=== PATIENT | female | born 1970 | race Caucasian/White ===

== ENCOUNTER 2018-08-17 09:26 | Emergency (ER) | payer OTHER ==
[2018-08-17 09:41] VITALS: RESP 18; TEMP 97.8
[2018-08-17] MEDS ORDERED: ASPIRIN 81 MG PO STA (10:05)
[2018-08-17] MEDS ORDERED: diphenhydrAMINE 50 MG/ML 1 ML VIAL IVP STA (10:05)
[2018-08-17] MEDS ORDERED: SODIUM CHLORIDE 0.9% 1,000 ML IV STA ×2 (10:05)
[2018-08-17] MEDS ORDERED: METOCLOPRAMIDE 5 MG/ML 2 ML VIAL IVP STA (10:05)
[2018-08-17] MEDS ORDERED: NITROGLYCERIN SL TABS 0.4 MG TAB SUBLINGUAL STA (10:05)
--- NOTE | 2018-08-17 10:16 | ED ---
Chest Pain HPI - General Chief Complaint: Chest Pain Stated Complaint: Chest pain/lt arm pain Time Seen by Provider: 08/17/18 09:50 Source: patient, RN notes reviewed, old records reviewed Mode of arrival: ambulatory Limitations: no limitations - History of Present Illness Initial Comments: Patient is a 48-year-old female presents emergency department today with chief complaint of left-sided chest pain radiating towards her jaw and occasionally down her arm. It's been progressive over the past 3 days especially at work. Worse on exertion. Patient has a significant cardiac history including pacemaker defibrillator placement in 2015 and february in [place]. She's also had cardiac cath and stent in 2013 when she had a stent in her LAD. Patient travels regularly for work. She was recently in [place] and had a cardiac cath in April of this year in [place]. She reports that it was relatively clear and not to the point where needing further stenting at that time. Patient reports that she did try to take her nitro but believes it was and was not helping. Patient at this time is a diabetic and a smoker. She is poorly controlled and does not take her insulin regularly. She has no primary care physician. She's been getting her prescriptions filled at different emergency departments and states that she's been traveling in. Patient reports that she is nauseated. - Related Data Home Medications Medication Instructions Recorded Confirmed Atorvastatin [Lipitor] 80 mg PO HS 08/17/18 08/17/18 Gabapentin [Neurontin] 800 mg PO TID 08/17/18 08/17/18 INSULIN LISPRO (humaLOG) [humaLOG] See Protocol SQ DIRECTED 08/17/18 08/17/18 Insulin Glargine [Lantus] 25 units SQ DAILY 08/17/18 08/17/18 Isosorbide Mononitrate ER [Imdur] 30 mg PO DAILY 08/17/18 08/17/18 Levothyroxine Sodium [Synthroid] 125 mcg PO DAILY 08/17/18 08/17/18 Metoprolol Tartrate [Lopressor] 50 mg PO BID 08/17/18 08/17/18 Naproxen [Naprosyn] 375 mg PO Q8HR 08/17/18 08/17/18 Allergies Allergy/AdvReac Type Severity Reaction Status Date / Time azithromycin Allergy Diarrhea Verified 08/17/18 11:37 Cephalosporins Allergy Rash/Hives Verified 08/17/18 11:37 cranberry Allergy Unknown Verified 08/17/18 11:37 ketorolac [From Toradol] Allergy Rash/Hives Verified 08/17/18 11:37 levofloxacin [From Levaquin] Allergy Anaphylaxis Verified 08/17/18 11:37 morphine Allergy Anaphylaxis Verified 08/17/18 11:37 ondansetron [From Zofran] Allergy Rash/Hives Verified 08/17/18 11:37 Review of Systems ROS Statement: Those systems with pertinent positive or pertinent negative responses have been documented in the HPI. ROS Other: All systems not noted in ROS Statement are negative. EKG Findings - EKG Comments: EKG Findings:: EKG performed at 1014 shows atrial paced rhythm with prolonged conduction. Abnormal EKG noted. Ventricular rate 80 bpm. ME interval is 214 ms. QRS duration 66. QT QTc is 382/440 ms. No evidence of ST elevation or T- wave inversion at this time. Past Medical History Past Medical History: Coronary Artery Disease (CAD), Chest Pain / Angina, Heart Failure, Diabetes Mellitus, Hypertension, Thyroid Disorder History of Any Multi-Drug Resistant Organisms: None Reported Past Surgical History: Cholecystectomy, Heart Catheterization With Stent, Hernia Repair, Hysterectomy, Orthopedic Surgery, Pacemaker Additional Past Surgical History / Comment(s): L leg, bladder stimulater in L hip Past Psychological History: No Psychological Hx Reported Smoking Status: Current every day smoker Past Alcohol Use History: Rare Past Drug Use History: None Reported General Exam - General Exam Comments Initial Comments: 48 rolled female. Alert and oriented 3. Patient appears no acute distress. Limitations: no limitations General appearance: alert, in no apparent distress Head exam: Present: atraumatic, normocephalic, normal inspection Eye exam: Present: normal appearance, PERRL, EOMI. Absent: scleral icterus, conjunctival injection, periorbital swelling ENT exam: Present: normal exam, mucous membranes moist Neck exam: Present: normal inspection. Absent: tenderness, meningismus, lymphadenopathy Respiratory exam: Present: normal lung sounds bilaterally. Absent: respiratory distress, wheezes, rales, rhonchi, stridor Cardiovascular Exam: Present: regular rate, normal rhythm, normal heart sounds. Absent: systolic murmur, diastolic murmur, rubs, gallop, clicks GI/Abdominal exam: Present: soft, normal bowel sounds. Absent: distended, tenderness, guarding, rebound, rigid Extremities exam: Present: normal inspection, full ROM, normal capillary refill. Absent: tenderness, pedal edema, joint swelling, calf tenderness Back exam: Present: normal inspection Neurological exam: Present: alert, oriented X3, CN II-XII intact Course Vital Signs 08/17/18 08/17/18 08/17/18 09:36 12:26 12:27 Temperature 97.8 F Pulse Rate 80 80 Pulse Rate [ 81 Technology Lead ] Respiratory 18 18 Rate Blood Pressure 138/72 131/79 O2 Sat by Pulse 97 96 Oximetry Chest Pain MDM - MDM This Patient is a 48-year-old female who presents emergency Department chief complaint of chest pain. Rating down the left arm and jaw for the past 3 days. She does report it was worse on exertion. Patient's EKG showed atrial place rhythm. No acute changes. He did have an a prolonged emergency room stay due to difficult IV establishment. We did eventually obtain blood work. Her troponin and d-dimer and cardiac enzymes and BNP were normal. Her chest x-ray did show some mild cardiomegaly. She is a smoker and diabetic poorly controlled. Plus this extensive cardiac history. I did discuss that I would like to admit the Patient for further evaluation, heparin and cardiology consult. Patient then refused and stated she would prefer to go home and take care of her dog. I did discuss that her symptoms could worsen and could be life -threatening. She does agree to leave AMA. Patient will be advised to follow- up with primary care physician. All questions answered return primary's were discussed. Disposition Clinical Impression: Chest pain Disposition: Left Against Medical Advice Condition: Stable Is patient prescribed a controlled substance at d/c from ED?: No Referrals: None,Stated [Primary Care Provider] - 1-2 days Time of Disposition: 13:34
[2018-08-17 12:29] LABS: Basophils % (A) 1 %; Eosinophils # (A) 0.1 k/uL (0-0.7); Eosinophils % (A) 2 %; HCT 37.8 % (34.0-46.0); HGB 12.2 gm/dL (11.4-16.0); Lymphocytes # (A) 1.4 k/uL (1.0-4.8); Lymphocytes % (A) 29 %; MCH 29.7 pg (25.0-35.0); MCHC 32.3 g/dL (31.0-37.0); Mean Platelet Volume 6.7; Monocytes # (A) 0.2 k/uL (0-1.0); Monocytes % (A) 4 %; Neutrophils # (A) 3.1 k/uL (1.3-7.7); Neutrophils % (A) 64 %; Platelet Count 243 k/uL (150-450); RBC 4.11 m/uL (3.80-5.40); WBC 4.8 k/uL (3.8-10.6)
[2018-08-17 12:30] VITALS: BP 131/79; PULSE 80
--- NOTE | 2018-08-17 12:36 | XR ---
EXAMINATION TYPE: XR chest 2V DATE OF EXAM: 08/17/2018 HISTORY: Chest Pain. REFERENCE: NONE. FINDINGS: There is a bipolar pacemaker in place on the left. Heart size is upper limits of normal. The lungs appear clear. Pleural spaces are clear. IMPRESSION: BORDERLINE CARDIOMEGALY.
[2018-08-17 12:39] LABS: ALT 24 U/L (9-52); AST 23 U/L (14-36); Albumin 3.6 g/dL (3.5-5.0); Alkaline Phosphatase 86 U/L (38-126); Anion Gap 6 mmol/L; Blood Urea Nitrogen 13 mg/dL (7-17); Calcium 9.2 mg/dL (8.4-10.2); Carbon Dioxide 22 mmol/L (22-30); Chloride 112 mmol/L (98-107); Glucose 93 mg/dL (74-99); Potassium 4.9 mmol/L (3.5-5.1); Sodium 140 mmol/L (137-145); Total Bilirubin 0.3 mg/dL (0.2-1.3); Total Protein 6.3 g/dL (6.3-8.2)
[2018-08-17 12:41] LABS: Creatine Kinase 112 U/L (30-135)
[2018-08-17 12:54] LABS: Creatine Kinase MB 1.8 ng/mL (0.0-2.4); Troponin I <0.012 ng/mL (0.000-0.034)
[2018-08-17 13:27] LABS: D-Dimer 0.3 mg/L FEU (<0.60); INR 0.9 (<1.2); Partial Thromboplastin Time 22.7 sec (22.0-30.0); Prothrombin Time 9.5 sec (9.0-12.0)
== END 2018-08-17 13:45 | disposition left against medical advice (07) ==
LOC: EC 09:26
DX: R07.9 Chest pain, unspecified (principal); R68.84 Jaw pain; M79.602 Pain in left arm; R11.0 Nausea; E11.65 Type 2 diabetes mellitus with hyperglycemia; E78.5 Hyperlipidemia, unspecified; I11.0 Hypertensive heart disease with heart failure; I50.9 Heart failure, unspecified; I25.10 Atherosclerotic heart disease of native coronary artery without angina pectoris; E07.9 Disorder of thyroid, unspecified; F17.200 Nicotine dependence, unspecified, uncomplicated; Z88.1 Allergy status to other antibiotic agents; Z88.5 Allergy status to narcotic agent; Z88.6 Allergy status to analgesic agent; Z88.8 Allergy status to other drugs, medicaments and biological substances; Z91.018 Allergy to other foods; Z79.1 Long term (current) use of non-steroidal anti-inflammatories (NSAID); Z79.4 Long term (current) use of insulin; Z79.899 Other long term (current) drug therapy; Z95.0 Presence of cardiac pacemaker; Z95.5 Presence of coronary angioplasty implant and graft; Z86.79 Personal history of other diseases of the circulatory system
CPT/HCPCS: 36415; 93005; 85379; 80053; 82550; 82553; 83735; 84484; 85025; 85610; 85730; 71046; 99285; 96374; 96375; 96361; J1200; J2765

== ENCOUNTER 2018-08-18 08:59 | Observation (INO) | payer OTHER ==
[2018-08-18 09:15] VITALS: PULSE 80; TEMP 97.7
[2018-08-18] MEDS ORDERED: SODIUM CHLORIDE 0.9% 1,000 ML IV STA (09:19)
[2018-08-18] MEDS ORDERED: ASPIRIN 81 MG PO STA (09:19)
--- NOTE | 2018-08-18 09:32 | ED ---
Chest Pain HPI - General Chief Complaint: Chest Pain Stated Complaint: still ill from yesterdays visit Time Seen by Provider: 08/18/18 09:17 Source: patient, RN notes reviewed, old records reviewed Mode of arrival: ambulatory Limitations: no limitations - History of Present Illness Initial Comments: Patient is a 48-year-old female, history of diabetes and smoking, hypertension except cardiac history presents emergency Department with family with the chest pain. Patient was evaluated by myself yesterday in the emergency department. I did offer her admission for further admission for chest pain but she did sign AGAINST MEDICAL ADVICE. She reports that she went home and continued to have chest pain. She did not take nitro. She states she just feels unwell. She also complains of increased swelling in her hands and legs. Patient reports that she's had no fevers or chills. She denies any belly pain. She states she does feel slightly nauseated. No episodes of diaphoresis or shortness of breath. Patient states that she has had a stent in her LAD in 2013. Also has history of pacemaker defibrillator. Patient reports that she hasn't taking her medications today. She denies any other complaints. Patient reports that she did have a cardiac cath in April of this year and a helmet. Currently trying to look for records. - Related Data Home Medications Medication Instructions Recorded Confirmed Atorvastatin [Lipitor] 80 mg PO HS 08/17/18 08/17/18 Gabapentin [Neurontin] 800 mg PO TID 08/17/18 08/17/18 INSULIN LISPRO (humaLOG) [humaLOG] See Protocol SQ DIRECTED 08/17/18 08/17/18 Insulin Glargine [Lantus] 25 units SQ DAILY 08/17/18 08/17/18 Isosorbide Mononitrate ER [Imdur] 30 mg PO DAILY 08/17/18 08/17/18 Levothyroxine Sodium [Synthroid] 125 mcg PO DAILY 08/17/18 08/17/18 Metoprolol Tartrate [Lopressor] 50 mg PO BID 08/17/18 08/17/18 Naproxen [Naprosyn] 375 mg PO Q8HR 08/17/18 08/17/18 Allergies Allergy/AdvReac Type Severity Reaction Status Date / Time azithromycin Allergy Diarrhea Verified 08/18/18 09:15 Cephalosporins Allergy Rash/Hives Verified 08/18/18 09:15 cranberry Allergy Unknown Verified 08/18/18 09:15 ketorolac [From Toradol] Allergy Rash/Hives Verified 08/18/18 09:15 levofloxacin [From Levaquin] Allergy Anaphylaxis Verified 08/18/18 09:15 morphine Allergy Anaphylaxis Verified 08/18/18 09:15 ondansetron [From Zofran] Allergy Rash/Hives Verified 08/18/18 09:15 Review of Systems ROS Statement: Those systems with pertinent positive or pertinent negative responses have been documented in the HPI. ROS Other: All systems not noted in ROS Statement are negative. EKG Findings - EKG Comments: EKG Findings:: Atrial paced rhythm abnormal EKG noted. Ventricular rate of 80 bpm. SD interval is 206. QRS duration 82. QT QTc is 376/433 ms. Past Medical History Past Medical History: Coronary Artery Disease (CAD), Chest Pain / Angina, Heart Failure, Diabetes Mellitus, Hypertension, Thyroid Disorder History of Any Multi-Drug Resistant Organisms: None Reported Past Surgical History: Cholecystectomy, Heart Catheterization With Stent, Hernia Repair, Hysterectomy, Orthopedic Surgery, Pacemaker Additional Past Surgical History / Comment(s): L leg, bladder stimulater in L hip Past Psychological History: No Psychological Hx Reported Smoking Status: Current every day smoker Past Alcohol Use History: Rare Past Drug Use History: None Reported General Exam - General Exam Comments Initial Comments: Patient's 48-year-old female. Alert and oriented 3. Patient appears in no acute distress. Limitations: no limitations General appearance: alert, in no apparent distress Head exam: Present: atraumatic, normocephalic, normal inspection Eye exam: Present: normal appearance, PERRL, EOMI. Absent: scleral icterus, conjunctival injection, periorbital swelling ENT exam: Present: normal exam, mucous membranes moist Neck exam: Present: normal inspection. Absent: tenderness, meningismus, lymphadenopathy Respiratory exam: Present: normal lung sounds bilaterally. Absent: respiratory distress, wheezes, rales, rhonchi, stridor Cardiovascular Exam: Present: regular rate, normal rhythm, normal heart sounds. Absent: systolic murmur, diastolic murmur, rubs, gallop, clicks GI/Abdominal exam: Present: soft, normal bowel sounds. Absent: distended, tenderness, guarding, rebound, rigid Extremities exam: Present: normal inspection, full ROM, normal capillary refill. Absent: tenderness, pedal edema, joint swelling, calf tenderness Back exam: Present: normal inspection Neurological exam: Present: alert, oriented X3, CN II-XII intact Course Vital Signs 08/18/18 08/18/18 08/18/18 09:12 09:32 10:00 Temperature 97.7 F Pulse Rate 80 80 Respiratory 16 18 Rate Blood Pressure 122/79 123/82 O2 Sat by Pulse 97 96 98 Oximetry 08/18/18 11:00 Temperature Pulse Rate 80 Respiratory 20 Rate Blood Pressure 131/88 O2 Sat by Pulse 97 Oximetry Chest Pain MDM - [facility] Patient's 48-year-old female diabetic smoker presents today with chest pain. She was seen yesterday due to leaving AGAINST MEDICAL ADVICE or evaluation per cardiac consult. Patient at this time does contain complain of some chest discomfort. Reports with leaning forward. Patient's lab work today was reviewed and unremarkable. Patient had negative d-dimer yesterday. Chest x- rays negative for any acute process. At this time I discussed that with her comorbid is a previous cardiac history as well as diabetes and being a smoker would like to me the Patient for further evaluation by cardiology. 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 Patient understands admission and agrees to admission today. Disposition Clinical Impression: Chest pain Disposition: ADMITTED IP TO THIS [facility] Condition: Stable Is patient prescribed a controlled substance at d/c from ED?: No Referrals: None,Stated [Primary Care Provider] - 1-2 days Time of Disposition: 12:16
--- NOTE | 2018-08-18 10:15 | XR ---
EXAMINATION TYPE: XR chest 2V DATE OF EXAM: 08/18/2018 HISTORY: Chest Pain. REFERENCE: Previous study dated 08/17/2018. FINDINGS: There is a bipolar pacemaker in place on the left. The lungs are clear. Pleural spaces are clear. The heart is not enlarged. IMPRESSION: NO ACUTE INTRATHORACIC ABNORMALITY.
[2018-08-18 10:26] LABS: Basophils % (A) 0 %; Eosinophils # (A) 0.1 k/uL (0-0.7); Eosinophils % (A) 1 %; HCT 38.9 % (34.0-46.0); HGB 12.7 gm/dL (11.4-16.0); Lymphocytes # (A) 0.9 k/uL (1.0-4.8); Lymphocytes % (A) 18 %; MCH 30.4 pg (25.0-35.0); MCHC 32.8 g/dL (31.0-37.0); MCV 92.9 fL (80.0-100.0); Mean Platelet Volume 6.8; Monocytes # (A) 0.2 k/uL (0-1.0); Monocytes % (A) 4 %; Neutrophils % (A) 76 %; Platelet Count 233 k/uL (150-450); RBC 4.19 m/uL (3.80-5.40); RDW 13.1 % (11.5-15.5); WBC 5.2 k/uL (3.8-10.6)
[2018-08-18] MEDS ORDERED: METOCLOPRAMIDE 5 MG/ML 2 ML VIAL IVP STA (10:28)
[2018-08-18 10:34] LABS: Partial Thromboplastin Time 22.5 sec (22.0-30.0); Prothrombin Time 9.5 sec (9.0-12.0)
[2018-08-18 10:35] LABS: ALT 20 U/L (9-52); AST 21 U/L (14-36); Albumin 3.6 g/dL (3.5-5.0); Alkaline Phosphatase 82 U/L (38-126); Anion Gap 5 mmol/L; Blood Urea Nitrogen 14 mg/dL (7-17); Calcium 9.3 mg/dL (8.4-10.2); Carbon Dioxide 25 mmol/L (22-30); Chloride 110 mmol/L (98-107); Glucose 110 mg/dL (74-99); Lipase 74 U/L (23-300); Magnesium 1.9 mg/dL (1.6-2.3); Potassium 4.8 mmol/L (3.5-5.1); Sodium 140 mmol/L (137-145); Total Bilirubin 0.3 mg/dL (0.2-1.3); Total Protein 6.3 g/dL (6.3-8.2)
[2018-08-18 10:46] LABS: Creatine Kinase 73 U/L (30-135)
[2018-08-18 10:59] LABS: Troponin I <0.012 ng/mL (0.000-0.034)
[2018-08-18] MEDS ORDERED: NITROGLYCERIN SL TABS 0.4 MG TAB SUBLINGUAL PRN (12:16)
[2018-08-18] MEDS ORDERED: HEPARIN SODIUM,PORCINE 5,000 UNIT/ML 1 ML VIAL IV ONE (12:16)
[2018-08-18] MEDS ORDERED: MORPHINE SULFATE 2 MG/ML SYRINGE IVP PRN ×2 (12:16→12:28)
[2018-08-18] MEDS ORDERED: HEPARIN SOD,PORK IN 0.45% NACL 25,000 UNIT in 0.45% NACL 1 500ML.BAG IV SCH (12:30)
[2018-08-18 13:06] LABS: Creatine Kinase 69 U/L (30-135)
[2018-08-18 13:20] LABS: Troponin I <0.012 ng/mL (0.000-0.034)
[2018-08-18 16:07] VITALS: BP 118/71; RESP 16
[2018-08-18] MEDS ORDERED: ACETAMINOPHEN TAB 325 MG TAB PO PRN (16:29)
[2018-08-18] MEDS ORDERED: HYDROcodone/APAP 5-325MG 1 EACH TAB PO PRN (16:29)
[2018-08-18] MEDS ORDERED: NALOXONE 0.4 MG/ML 1 ML VIAL IV PRN (16:29)
[2018-08-18] MEDS ORDERED: NAPROXEN 250 MG TAB PO PRN (16:34)
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
[2018-08-18] MEDS ORDERED: INSULIN ASPART 100 UNIT/ML 1 ML 10 ML VIAL SQ SCH (17:30)
--- NOTE | 2018-08-18 18:31 | P.DS ---
Providers Date of admission: 08/18/18 12:06 Expected date of discharge: 08/18/18 Attending physician: Mouna Kat MD Consults: 08/18/18 12:16 Consult Physician Urgent Consulting Provider: Srikanth Kinsey Consult Reason/Comments: Chest pain, Pacemaker Do you want consulting provider notified?: Yes Primary care physician: Stated None Hospital Course: Discharge Diagnosis: PATIENT LEFT AMA Chest pain with history of significant coronary artery disease status post stent to the LAD History of V. fib and V. tach requiring AICD Diabetes mellitus type 2 with neuropathy, insulin-dependent Hypertension, treated controlled Hypothyroidism Tobacco abuse Hospital Course: Patient is a 48 yo CF with a past medical history of hypertension, diabetes mellitus type 2, hypothyroidism, and congestive heart failure status post AICD secondary to V. tach and V. fib, and coronary artery disease with prior stent to the LAD who presented to the emergency department complaints of chest pain. She'll initially presented to the emergency department on 08/17 with complaints of chest pain but decided to go home and she had no one to care for her dogs. She re-presented on 08/18 as her chest pain recurred. In the emergency department her initial vital signs were within normal limits. Her initial troponin from today was negative, and troponin from yesterday was negative. EKG demonstrated a paced atrial rhythm at a rate of 80. She was started on a heparin drip and arrangements were made for admission. She has a significant cardiac history. She had a stent placed to the LAD in 2013. In April of this year she had repeat heart catheterization which showed multiple vessels with 60 % blockages this was done in [place] and records are currently pending. She reports that in February she underwent a permanent pacemaker with defibrillator second to V. tach and V. fib. She reports being taken off Effient at the time of her pacemaker implantation. She recently moved to [place] and she does not have a coil inspector or primary care physician at this time. She also has a history of insulin-dependent diabetes mellitus type 2 but has not been checking her blood sugars. Her urinary incontinence is secondary to having her ureters reattaching holes in her bladder after difficult hysterectomy performed several years ago. She now has had a bladder stimulator implanted at this did not work and she is incontinent of urine and wears pads on a chronic basis. Unfortunately patient left AMA from the emergency department. She was given information on Dr. Almendarez, the [facility], and Dr. Tran for follow-up. A total of 20 minutes of time were spent preparing this complex discharge summary . Patient Condition at Discharge: Stable Plan - Discharge Summary New Discharge Prescriptions: No Action INSULIN LISPRO (humaLOG) [humaLOG] See Protocol SQ AC-TID Metoprolol Tartrate [Lopressor] 50 mg PO BID Levothyroxine Sodium [Synthroid] 125 mcg PO DAILY Naproxen [Naprosyn] 375 mg PO Q8HR PRN PRN Reason: Pain Isosorbide Mononitrate ER [Imdur] 30 mg PO DAILY Insulin Glargine [Lantus] 20 units SQ HS Gabapentin [Neurontin] 800 mg PO TID Discharge Medication List Gabapentin [Neurontin] 800 mg PO TID 08/17/18 [History] INSULIN LISPRO (humaLOG) [humaLOG] See Protocol SQ AC-TID 08/17/18 [History] Insulin Glargine [Lantus] 20 units SQ HS 08/17/18 [History] Isosorbide Mononitrate ER [Imdur] 30 mg PO DAILY 08/17/18 [History] Levothyroxine Sodium [Synthroid] 125 mcg PO DAILY 08/17/18 [History] Metoprolol Tartrate [Lopressor] 50 mg PO BID 08/17/18 [History] Naproxen [Naprosyn] 375 mg PO Q8HR PRN 08/17/18 [History] Follow up Appointment(s)/Referral(s): Don Almendarez MD [STAFF PHYSICIAN] - 1 Week [facility] [NON-STAFF] - 1 Week Claudia Tran MD [REFERRING] - 1 Week Discharge Disposition: Left Against Medical Advice
[2018-08-18] MEDS ORDERED: METOPROLOL TARTRATE 50 MG TAB PO SCH (21:00)
[2018-08-18] MEDS ORDERED: INSULIN DETEMIR 100 UNIT/ML 10 ML VIAL SQ SCH (21:00)
[2018-08-18] MEDS ORDERED: GABAPENTIN 400 MG CAP PO SCH (22:00)
[2018-08-19] MEDS ORDERED: LEVOTHYROXINE 125 MCG TAB PO SCH (06:30)
[2018-08-19] MEDS ORDERED: ASPIRIN 325 MG TAB PO SCH (09:00)
[2018-08-19] MEDS ORDERED: ISOSORBIDE MONONITRATE ER 30 MG TAB.ER.24H PO SCH (09:00)
== END 2018-08-18 20:52 | disposition left against medical advice (07) ==
LOC: EC 08:59 → 1SOBS 12:06
PROVIDERS: ADMIT Family Medicine; ATTEND Family Medicine
DX: R07.89 Other chest pain (principal); Z53.21 Procedure and treatment not carried out due to patient leaving prior to being seen by health care provider; I25.10 Atherosclerotic heart disease of native coronary artery without angina pectoris; Z95.5 Presence of coronary angioplasty implant and graft; Z95.810 Presence of automatic (implantable) cardiac defibrillator; E11.40 Type 2 diabetes mellitus with diabetic neuropathy, unspecified; E03.9 Hypothyroidism, unspecified; I50.9 Heart failure, unspecified; I11.0 Hypertensive heart disease with heart failure; Z91.19 Patient's noncompliance with other medical treatment and regimen; R32 Unspecified urinary incontinence; Z90.710 Acquired absence of both cervix and uterus; M79.89 Other specified soft tissue disorders; R11.0 Nausea; Z79.4 Long term (current) use of insulin; Z79.899 Other long term (current) drug therapy; Z79.890 Hormone replacement therapy; Z79.1 Long term (current) use of non-steroidal anti-inflammatories (NSAID); Z88.1 Allergy status to other antibiotic agents; Z88.5 Allergy status to narcotic agent; Z88.8 Allergy status to other drugs, medicaments and biological substances; Z91.018 Allergy to other foods; Z96.0 Presence of urogenital implants; R61 Generalized hyperhidrosis; R53.1 Weakness; R42 Dizziness and giddiness; R06.02 Shortness of breath; R19.7 Diarrhea, unspecified; R60.0 Localized edema; Z90.49 Acquired absence of other specified parts of digestive tract; F17.210 Nicotine dependence, cigarettes, uncomplicated; Z66 Do not resuscitate
CPT/HCPCS: 99285; 96376 ×2; 96375 ×2; 96365 ×2; 96366 ×5; 36415; 93005; 83880; 80053; 82550; 82553; 83690; 83735; 84484; 85025; 85610; 85730; 71046; G0378; J1644 ×2; J2765